=== PATIENT | female | born 1950 | race Caucasian/White ===

== ENCOUNTER 2019-09-07 00:52 | Inpatient (IN) | payer OTHER ==
[~2019-09-07] VITALS: Ht 162.6 cm; Wt 56.2 kg
[2019-09-07] VITALS (7 sets, daily range): BP systolic 108–172; BP diastolic 64–68; Ht 162.6 cm; Wt 56.2 kg
[2019-09-07 01:44] LABS: BASOPHILS 0.5 % (0-2); EOSINOPHILS 1.3 % (0-7); HEMATOCRIT 33.7 % (36.0-48.0); HEMOGLOBIN 11.3 g/dL (12-16); IMMATURE GRANULOCYTES 0.2 % (0-5); LYMPHOCYTES 14.2 % (15-50); MCH 31.1 pg (26.0-34.0); MCHC 33.5 g/dL (31.0-37.0); MCV 92.8 fL (80.0-100.0); MEAN PLATELET VOLUME 9.5 fL (7.4-10.4); MONOCYTES 8.8 % (2-11); PLATELET COUNT 220 10x3/uL (130-400); RBC 3.63 10x6/uL (4.00-5.40); RDW 13.3 % (11.5-14.5); WBC 8.5 10x3/uL (4.8-10.8)
[2019-09-07 01:53] LABS: CALC OSMOLALITY 283 mosm/kg (275-300); CARBON DIOXIDE 30.1 mmol/L (21.0-32.0); CHLORIDE - SERUM 106 mmol/L (98-107); CREATININE - SERUM 0.8 mg/dL (0.6-1.3); GLUCOSE 108 mg/dL (74-106); POTASSIUM - SERUM 3.8 mmol/L (3.5-5.1); SODIUM 141 mmol/L (136-145); UREA NITROGEN 17 mg/dL (7-18); eGFR NON AFRICAN AMERICAN 75 mL/min (90-120)
[2019-09-07 02:08] LABS: ALBUMIN 3.4 g/dL (3.4-5.0); ALKALINE PHOSPHATASE 86 U/L (30-120); ALT (SGPT) 24 U/L (10-68); C-REACTIVE PROTEIN 0.6 mg/dL (0.0-0.9); CREATINE KINASE 80 UL (21-215); LIPASE 132 U/L (73-393); MAGNESIUM - SERUM 1.9 mg/dL (1.8-2.4); PRO BNP 282 pg/mL (0-125); PROTEIN - SERUM 6.2 g/dL (6.4-8.2); THYROID STIMULATING HORMONE 3.29 uIU/mL (0.36-3.74)
[2019-09-07 02:09] LABS: TROPONIN-I < 0.017 ng/mL (0.000-0.060)
[2019-09-07] MEDS ORDERED: CARAFATE1 G PO (06:36)
[2019-09-07] MEDS ORDERED: METHOTREXATE2.5 MG PO (06:39)
[2019-09-07] MEDS ORDERED: PREDNISONE5 MG PO (06:42)
[2019-09-07] MEDS ORDERED: GABAPENTIN300 MG PO (06:43)
[2019-09-07] MEDS ORDERED: CYTOTEC200 MCG PO (06:44)
[2019-09-07] MEDS ORDERED: ARTHROTEC EC 71 EACH PO (06:45)
[2019-09-07] MEDS ORDERED: HYDROXYCHLOROQ200 MG PO (06:46)
[2019-09-07] MEDS ORDERED: PEPCID AC20 MG PO (06:47)
[2019-09-07] MEDS ORDERED: VOLTAREN75 MG PO (06:52)
[2019-09-07] MEDS ORDERED: MULTI-DAY VITAM1 TAB PO (06:53)
[2019-09-07] MEDS ORDERED: CITRACAL + D E1 EACH PO (06:54)
--- NOTE | 2019-09-07 12:01 | NUR ---
ASSESSMENT PER FLOW SHEET. PATIENT IS WITHOUT DISTRESS. DENIES NEEDS.CALL LIGHT IN REACH. NASIR MAT ON PER RADHA
[2019-09-08 04:00] VITALS: BP 124/49
[2019-09-08 06:17] LABS: BASOPHILS 1.2 % (0-2); EOSINOPHILS 3.3 % (0-7); HEMATOCRIT 35.1 % (36.0-48.0); HEMOGLOBIN 11.6 g/dL (12-16); IMMATURE GRANULOCYTES 0.2 % (0-5); LYMPHOCYTES 41.7 % (15-50); MCH 30.9 pg (26.0-34.0); MCV 93.6 fL (80.0-100.0); MEAN PLATELET VOLUME 9.4 fL (7.4-10.4); MONOCYTES 13.3 % (2-11); NEUTROPHILS 40.3 % (40-80); PLATELET COUNT 242 10x3/uL (130-400); RBC 3.75 10x6/uL (4.00-5.40); RDW 13.6 % (11.5-14.5)
[2019-09-08 06:25] LABS: WBC 4.3 10x3/uL (4.8-10.8)
[2019-09-08 06:33] LABS: ALBUMIN 3.2 g/dL (3.4-5.0); ALKALINE PHOSPHATASE 68 U/L (30-120); ALT (SGPT) 22 U/L (10-68); BILIRUBIN - TOTAL 0.56 mg/dL (0.2-1.3); CALC OSMOLALITY 278 mosm/kg (275-300); CALCIUM 8.9 mg/dL (8.5-10.1); CARBON DIOXIDE 31.1 mmol/L (21.0-32.0); CHLORIDE - SERUM 104 mmol/L (98-107); CREATININE - SERUM 0.7 mg/dL (0.6-1.3); GLUCOSE 79 mg/dL (74-106); POTASSIUM - SERUM 3.8 mmol/L (3.5-5.1); PROTEIN - SERUM 6.4 g/dL (6.4-8.2); SODIUM 139 mmol/L (136-145); UREA NITROGEN 17 mg/dL (7-18); eGFR NON AFRICAN AMERICAN 87 mL/min (90-120)
--- NOTE | 2019-09-08 07:10 | NUR ---
RECEIVED REPORT, ASSUMED CARE, A&O X3, BREATHING EVEN UNLABORED, IV TO LAC SL, DENIES NEEDS, CALL LIGHT IN REACH, LUNGS CTA, NO EDEMA NOTED, COMPLAINED OF SOME STIFFNESS
--- NOTE | 2019-09-08 07:30 | NUR ---
HELPED PT TO BATHROOM WHILE USING WALKER, MINIMUM ASSIST, HELPED BACK TO BED
--- NOTE | 2019-09-08 16:37 | NUR ---
I have reviewed this patient and I concur with the Shift Assessment completed by the Licensed Practical Nurse today this shift.
[2019-09-08 17:43] VITALS: BP 184/77
[2019-09-08 20:00] VITALS: BP 115/53
[2019-09-09 04:00] VITALS: BP 124/56
[2019-09-09 06:01] LABS: BASOPHILS 0.6 % (0-2); EOSINOPHILS 3.6 % (0-7); HEMATOCRIT 33.4 % (36.0-48.0); HEMOGLOBIN 10.8 g/dL (12-16); IMMATURE GRANULOCYTES 0.2 % (0-5); LYMPHOCYTES 39.7 % (15-50); MCH 30.2 pg (26.0-34.0); MCHC 32.3 g/dL (31.0-37.0); MCV 93.3 fL (80.0-100.0); MEAN PLATELET VOLUME 9.4 fL (7.4-10.4); MONOCYTES 11.5 % (2-11); NEUTROPHILS 44.4 % (40-80); PLATELET COUNT 233 10x3/uL (130-400); RBC 3.58 10x6/uL (4.00-5.40); RDW 13.4 % (11.5-14.5); WBC 5.1 10x3/uL (4.8-10.8)
[2019-09-09 06:36] LABS: ALKALINE PHOSPHATASE 62 U/L (30-120); ALT (SGPT) 19 U/L (10-68); BILIRUBIN - TOTAL 0.31 mg/dL (0.2-1.3); CALC OSMOLALITY 281 mosm/kg (275-300); CALCIUM 8.7 mg/dL (8.5-10.1); CARBON DIOXIDE 29.5 mmol/L (21.0-32.0); CHLORIDE - SERUM 107 mmol/L (98-107); CREATININE - SERUM 0.7 mg/dL (0.6-1.3); GLUCOSE 82 mg/dL (74-106); PROTEIN - SERUM 6.1 g/dL (6.4-8.2); SODIUM 142 mmol/L (136-145); UREA NITROGEN 13 mg/dL (7-18); eGFR NON AFRICAN AMERICAN 87 mL/min (90-120)
--- NOTE | 2019-09-09 07:10 | NUR ---
RECEIVED REPORT, ASSUMED CARE, BREATHING EVEN UNLABORED, BED LOWEST POSITION, CALL LIGHT IN REACH, LUNGS CTA, NO EDEMA NOTED, DENIES NEEDS, IV TO LAC PATENT
[2019-09-09 08:00] VITALS: BP 121/76
[2019-09-09] MEDS ORDERED: NORCO-7.5 PO ×2 (10:37→10:38)
--- NOTE | 2019-09-09 13:13 | NUR ---
DC INSTRUCTIONS GIVEN, QUESTIONS ANSWERED, IV REMOVED TIP INTACT, DC WITH BELINGINGS IN WC.
--- NOTE | 2019-09-09 16:08 | MORECARE ---
CASE MANAGEMENT DISCHARGE SUMMARY PATIENT: MARILYN GARDNER UNIT: [id number] ADM DATE: 09/07/19 AGE: 69 : 48 SEX: F ROOM/BED: D.2228 AUTHOR: KEAGAN BARGER PHYSICIAN: REFERRING PHYSICIAN: CALLIE BADILLO MD DATE OF SERVICE: 09/09/19 Discharge Plan Patient Name: MARILYN GARDNER Facility: [facility]:[place] : 1950 Planned Disposition: Home Anticipated Discharge Date: Discharge Date: 09/09/2019 Expected LOS: Initial Reviewer: [id number] Initial Review Date: 09/07/2019 Generated: 09/09/19 5:07 pm DCPIA - Discharge Planning Initial Assessment Updated by CHUCKIE: Yun Guthrie on 09/09/19 4:06 pm * Is the patient Alert and Oriented? Yes * How many steps to enter\exit or inside your home? * PCP FABY * Pharmacy [facility] * Preadmission Environment Home Alone * ADLs Independent * Equipment Walker * List name and contact numbers for known caregivers / representatives who currently or will assist patient after discharge: PATeJrson ASHLEY - [phone] [facility] - [phone] * Verbal permission to speak to the caregivers and representatives has been obtained from the patient. Yes * Community resources currently utilized None * Additional services required to return to the preadmission environment? No * Can the patient safely return to the preadmission environment? Yes * Has this patient been hospitalized within the prior 30 days at any hospital? No Coverage Notice Reviewer: [id number] Kristen Guthrie Notice Issued Date-Time: 09/09/2019 10:50 Notice Type: Patient Choice Letter Notice Delivered To: Patient Relationship to Patient: Seat Trimmer Name: Delivery Method: HAND - Hand Delivered Phyllis Days: Prior Verbal Notification: Recipient Understood Notice: Yes Recipient Signature: Yes Med Rec Note Co-signed by Attending: Coverage Notice Comment: declined HHS Patient Name: MARILYN GARDNER Page [phone] at 1608 All edits/amendments must be made on the electronic document DICTATION DATE: 09/09/19 1608 RECORDS AND INFORMATION MANAGER: HOLLIS 09/09/19 1608 RPT#: [id number] DC DATE:09/09/19 STATUS: DIS IN [facility] [address] [place] [address] END OF REPORT
--- NOTE | 2019-09-09 16:15 | MORECARE ---
CASE MANAGEMENT DISCHARGE SUMMARY PATIENT: MARILYN GARDNER UNIT: [id number] ADM DATE: 09/07/19 AGE: 69 : 48 SEX: F ROOM/BED: D.2228 AUTHOR: DENITA,DOC PHYSICIAN: REFERRING PHYSICIAN: CALLIE BADILLO MD DATE OF SERVICE: 09/09/19 Discharge Plan Patient Name: MARILYN GARDNER Facility: [facility]:[place] : 1950 Planned Disposition: Home Anticipated Discharge Date: Discharge Date: 09/09/2019 Expected LOS: Initial Reviewer: [email or web address] Initial Review Date: 09/07/2019 Generated: 09/09/19 5:14 pm Comments DCP- Discharge Planning Updated by [email or web address]: Yun Guthrie on 09/09/19 3:[address] Patient Name: MARILYN GARDNER Admission Status: ER Accout number: [id number] Admission Date: 09-07-2019 : 1950 Admission Diagnosis: Attending: OFE BADILLO Current LOS: 2 Anticipated DC Date: Planned Disposition: Home Primary Insurance: [employer] Discharge Planning Comments: CM met with patient to complete initial dc planning assessment. CM educated patient on the CM role and verbal consent given by patient to complete assessment. Patient lives at home alone. Patient is independent. Patient is a high risk for falls with her current condition. Patient states that she is going to family and friends to stay with her until she can recover from her surgery. At discharge patient plans to return home and feels this is a safe discharge. CM discussed availability of home health, rehab services, and medical equipment. Patient refused HHS and declination was signed. CM did give brochures on HH agencies locally if she should change her mind. Patient will have family to transport home. Patient denied known discharge needs at this time. CM will continue to follow and will assist as needed with dc plans/needs. Cryolite Recovery Operator: Yun Guthrie DCPIA - Discharge Planning Initial Assessment Updated by [email or web address]: Yun Guthrie on 09/09/19 4:06 pm * Is the patient Alert and Oriented? Yes * How many steps to enter\exit or inside your home? * PCP FABY * Pharmacy [facility] * Preadmission Environment Home Alone * ADLs Independent * Equipment Walker * List name and contact numbers for known caregivers / representatives who currently or will assist patient after discharge: PAT ASHLEY - [phone] KEO CONDON - [phone] * Verbal permission to speak to the caregivers and representatives has been obtained from the patient. Yes * Community resources currently utilized None * Additional services required to return to the preadmission environment? No * Can the patient safely return to the preadmission environment? Yes * Has this patient been hospitalized within the prior 30 days at any hospital? No Coverage Notice Reviewer: [id number] Kristen Guthrie Notice Issued Date-Time: 09/09/2019 10:50 Notice Type: Patient Choice Letter Notice Delivered To: Patient Relationship to Patient: Admission Nurse Name: Delivery Method: HAND - Hand Delivered Phyllis Days: Prior Verbal Notification: Recipient Understood Notice: Yes Recipient Signature: Yes Med Rec Note Co-signed by Attending: Coverage Notice Comment: declined HHS Last DP export: 09/09/19 3:08 p Patient Name: MARILYN GARDNER Page [phone] at 1615 All edits/amendments must be made on the electronic document DICTATION DATE: 09/09/191613 CLOTH WORKER: HOLLIS 09/09/19 161 RPT#: [id number] DC DATE:09/09/19 STATUS: DIS IN [facility] [address] [place] [address] END OF REPORT
--- NOTE | 2019-09-10 17:27 | MORECARE ---
CASE MANAGEMENT DISCHARGE SUMMARY PATIENT: MARILYN GARDNER UNIT: [id number] ADM DATE: 09/07/19 AGE: 69 : 48 SEX: F ROOM/BED: D.2228 AUTHOR: DENITA,DOC PHYSICIAN: REFERRING PHYSICIAN: CALLIE BADILLO MD DATE OF SERVICE: 09/10/19 Discharge Plan Patient Name: MARILYN GARDNER Facility: [facility]:[place] : 1950 Planned Disposition: Home Anticipated Discharge Date: Discharge Date: 09/09/2019 Expected LOS: Initial Reviewer: [id number] Initial Review Date: 09/07/2019 Generated: 09/10/19 6:26 pm Comments DCP- Discharge Planning Updated by [email or web address]: Yun Guthrie on 09/09/19 3:[address] Patient Name: MARILYN GARDNER Admission Status: ER Accout number: [id number] Admission Date: 09-07-2019 : 1950 Admission Diagnosis: Attending: OFE BADILLO Current LOS: 2 Anticipated DC Date: Planned Disposition: Home Primary Insurance: [employer] Discharge Planning Comments: CM met with patient to complete initial dc planning assessment. CM educated patient on the CM role and verbal consent given by patient to complete assessment. Patient lives at home alone. Patient is independent. Patient is a high risk for falls with her current condition. Patient states that she is going to family and friends to stay with her until she can recover from her surgery. At discharge patient plans to return home and feels this is a safe discharge. CM discussed availability of home health, rehab services, and medical equipment. Patient refused HHS and declination was signed. CM did give brochures on HH agencies locally if she should change her mind. Patient will have family to transport home. Patient denied known discharge needs at this time. CM will continue to follow and will assist as needed with dc plans/needs. Social Sciences Instructor: Yun Guthrie DCPIA - Discharge Planning Initial Assessment Updated by [email or web address]: Yun Guthrie on 09/09/19 4:06 pm * Is the patient Alert and Oriented? Yes * How many steps to enter\exit or inside your home? * PCP FABY * Pharmacy [facility] * Preadmission Environment Home Alone * ADLs Independent * Equipment Walker * List name and contact numbers for known caregivers / representatives who currently or will assist patient after discharge: PAT ASHLEY - [phone] KEO CONDON - [phone] * Verbal permission to speak to the caregivers and representatives has been obtained from the patient. Yes * Community resources currently utilized None * Additional services required to return to the preadmission environment? No * Can the patient safely return to the preadmission environment? Yes * Has this patient been hospitalized within the prior 30 days at any hospital? No Coverage Notice Reviewer: [id number] Kristen Guthrie Notice Issued Date-Time: 09/09/2019 10:50 Notice Type: Patient Choice Letter Notice Delivered To: Patient Relationship to Patient: Parking Worker Name: Delivery Method: HAND - Hand Delivered Phyllis Days: Prior Verbal Notification: Recipient Understood Notice: Yes Recipient Signature: Yes Med Rec Note Co-signed by Attending: Coverage Notice Comment: declined HHS Last DP export: 09/09/19 3:14 p Patient Name: MARILYN GARDNER Page [phone] at 1727 All edits/amendments must be made on the electronic document DICTATION DATE: 09/10/191725 RAG GRADER: HOLLIS 09/10/191725 RPT#: [id number] DC DATE:09/09/19 STATUS: DIS IN [facility] [address] [place] [address] END OF REPORT
== END 2019-09-09 13:14 | disposition home or self-care (01) | DRG 552 ==
LOC: D.ER 00:52 → D.MS 04:43 → OBSVTIME 04:43 → D.MS 04:43
PROVIDERS: Family Medicine; ADMIT Emergency Medicine; ATTEND Emergency Medicine
DX: M47.12 Other spondylosis with myelopathy, cervical region (principal); G72.81 Critical illness myopathy; G95.89 Other specified diseases of spinal cord; G95.20 Unspecified cord compression; M84.48XA Pathological fracture, other site, initial encounter for fracture; K57.90 Diverticulosis of intestine, part unspecified, without perforation or abscess without bleeding; G62.9 Polyneuropathy, unspecified; M06.9 Rheumatoid arthritis, unspecified; R26.9 Unspecified abnormalities of gait and mobility

== ENCOUNTER 2019-11-09 15:51 | Inpatient (IN) | payer OTHER ==
[~2019-11-09] VITALS: Ht 162.6 cm; Wt 57.5 kg
[~2019-11-09 15:51] MED LIST: ARTHROTEC EC 71 EACH PO; CARAFATE1 G PO; CITRACAL + D E1 EACH PO; CYTOTEC200 MCG PO; GABAPENTIN300 MG PO; HYDROXYCHLOROQ200 MG PO; METHOTREXATE2.5 MG PO; MULTI-DAY VITAM1 TAB PO; NORCO-7.5 PO; PEPCID AC20 MG PO; PREDNISONE5 MG PO; VOLTAREN75 MG PO
[2019-11-13] MEDS ORDERED: VITAMIN D2000 UNI1 PO ×2 (11:40→11:41)
[2019-11-13] MEDS ORDERED: FOLIC ACID1 MG PO (11:41)
[2019-11-13] MEDS ORDERED: [UNRECOGNIZED DRUG - OTHER] (11:42)
[2019-11-13 12:45] LABS: HEMATOCRIT 36.9 % (36.0-48.0); HEMOGLOBIN 12.3 g/dL (12-16); MCH 30.8 pg (26.0-34.0); MCHC 33.3 g/dL (31.0-37.0); MCV 92.5 fL (80.0-100.0); MEAN PLATELET VOLUME 9.5 fL (7.4-10.4); RBC 3.99 10x6/uL (4.00-5.40); RDW 14.1 % (11.5-14.5); WBC 6.6 10x3/uL (4.8-10.8)
[2019-11-15 20:00] VITALS: BP 142/60
--- NOTE | 2019-11-15 20:00 | NUR ---
PT BROUGHT TO FLOOR VIA WHEELCHAIR. AMBULATED WITH WALKER TO BED. FRIEND AT BEDSIDE. CONSENTS FOR LUMBAR LAMINECTOMY SIGNED AT THIS TIME. PT REQUESTING NORCO TONIGHT AT BEDTIME. CALLED DR HUNTLEY AND RECIEVED ORDER, SEE CHEKO. JUDAH CASSIDY APN CAME TO BEDSIDE TO SEE PT. SCDS PLACED ON PT BILAT AND EDUCATED ON USE. PROVIDED INCENTIVE SPIROMETER AND EDUCATED ON USE. PT DEMONSTRATED APPROPRIATE USE. ATTEMPTS X2 TO GET IV ACCESS UNSUCCESSFUL, WILL HAVE SECOND NURSE COME ATTEMPT.
--- NOTE | 2019-11-15 22:00 | NUR ---
HIBICLENS BATH DONE AT THIS TIME. ATTEMPTS X3 TO GET IV UNSUCCESSFUL. PT STATES SURGERY HAD TO PUT IN HER LAST IV. REQUESTED TO WAIT AND TRY AGAIN IN AM. STATES PAIN 8/10 IN BACK. GAVE NORCO ORDERED. DENIES OTHER NEEDS, CL IN REACH, WILL CTM
[2019-11-16 01:23] VITALS: BMI 20.8
[2019-11-16 04:00] VITALS: BP 135/63
[2019-11-16 06:41] LABS: BASOPHILS 0.9 % (0-2); EOSINOPHILS 2.3 % (0-7); HEMATOCRIT 32.8 % (36.0-48.0); HEMOGLOBIN 10.8 g/dL (12-16); IMMATURE GRANULOCYTES 0.2 % (0-5); LYMPHOCYTES 28.9 % (15-50); MCH 30.2 pg (26.0-34.0); MCHC 32.9 g/dL (31.0-37.0); MCV 91.6 fL (80.0-100.0); MEAN PLATELET VOLUME 9.4 fL (7.4-10.4); MONOCYTES 14.2 % (2-11); NEUTROPHILS 53.5 % (40-80); PLATELET COUNT 248 10x3/uL (130-400); RBC 3.58 10x6/uL (4.00-5.40); RDW 13.7 % (11.5-14.5); WBC 4.4 10x3/uL (4.8-10.8)
[2019-11-16 07:04] LABS: ANION GAP 10.8 mmol/L (8-16); CALCIUM 8.9 mg/dL (8.5-10.1); CARBON DIOXIDE 27.1 mmol/L (21.0-32.0); CREATININE - SERUM 0.9 mg/dL (0.6-1.3); MAGNESIUM - SERUM 2.1 mg/dL (1.8-2.4); PHOSPHOROUS 4.3 mg/dL (2.5-4.9); POTASSIUM - SERUM 3.9 mmol/L (3.5-5.1)
[2019-11-16 07:15] LABS: APTT 28.1 SECONDS (22.8-39.4); INR 0.98 (0.85-1.17); PROTIME 12.9 SECONDS (11.6-15.0)
--- NOTE | 2019-11-16 09:51 | NUR ---
Rehab Note- Acute Inpatient Rehab prescreen order received. The patient is a new admit, had a laminectomy this Am. She has a pending PT Eval and spoke with ARTURO Sanchez to order an OT Eval for PreAuth process. Will follow at this time. Thank you for this referal! Maye Balderrama RN Cinical Liaison, [facility] Rehab
[2019-11-16 10:34] VITALS: BP 138/57
[2019-11-16 13:29] VITALS: Ht 162.6 cm; Wt 57.5 kg
[2019-11-16 14:18] VITALS: BP 140/59
[2019-11-16 16:49] VITALS: BP 144/64
--- NOTE | 2019-11-16 17:38 | NUR ---
PATIENT IN BED, DENIES NEEDS AT THIS TIME. FREE FROM SIGNS OF DISTRESS. WILL CONTINUE TO MONITOR.
--- NOTE | 2019-11-16 18:41 | NUR ---
SITTING UP IN BED EATING SUPPER. NO C/O PAIN. NO S/S OF ACUTE DISTRESS NOTED. CALL LIGHT IN REACH. DENIES ANY NEEDS AT THIS TIME. WILL CONTINUE TO MONITOR.
[2019-11-16 20:00] VITALS: BP 109/49
[2019-11-17] VITALS: BP 123/66
[2019-11-17 04:00] VITALS: BP 127/54
[2019-11-17 06:53] LABS: BASOPHILS 0.2 % (0-2); EOSINOPHILS 0.1 % (0-7); HEMATOCRIT 32.5 % (36.0-48.0); HEMOGLOBIN 10.6 g/dL (12-16); IMMATURE GRANULOCYTES 0.1 % (0-5); LYMPHOCYTES 11.9 % (15-50); MCHC 32.6 g/dL (31.0-37.0); MCV 92.1 fL (80.0-100.0); MEAN PLATELET VOLUME 9.6 fL (7.4-10.4); MONOCYTES 15.8 % (2-11); NEUTROPHILS 71.9 % (40-80); PLATELET COUNT 248 10x3/uL (130-400); RBC 3.53 10x6/uL (4.00-5.40)
[2019-11-17 07:22] LABS: WBC 9.6 10x3/uL (4.8-10.8)
[2019-11-17 07:26] LABS: CALC OSMOLALITY 281 mosm/kg (275-300); CALCIUM 8.8 mg/dL (8.5-10.1); CARBON DIOXIDE 25.9 mmol/L (21.0-32.0); CHLORIDE - SERUM 107 mmol/L (98-107); CREATININE - SERUM 0.8 mg/dL (0.6-1.3); GLUCOSE 101 mg/dL (74-106); PHOSPHOROUS 3.8 mg/dL (2.5-4.9); POTASSIUM - SERUM 4.1 mmol/L (3.5-5.1); SODIUM 141 mmol/L (136-145); eGFR NON AFRICAN AMERICAN 75 mL/min (90-120)
[2019-11-17 07:27] LABS: UREA NITROGEN 16 mg/dL (7-18)
--- NOTE | 2019-11-17 08:25 | NUR ---
0700 ASSISTED ON BEDPAN VOIDS WITHOUT DIFFICULTY
[2019-11-17 09:15] VITALS: BP 114/48
[2019-11-17 12:23] VITALS: BP 146/58
--- NOTE | 2019-11-17 14:49 | NUR ---
Rehab Note- Acute Inpatient Rehab prescreen order received. The patient has [employer] insurance and will require a PreAuth prior to an inpatient acute rehab stay. She has a pending OT Eval at this time, will need for PreAuth process. Will follow at this time and begin PreAuth process. Thank you for this referral! CATHIE Goff, [facility] Rehab
[2019-11-17 16:00] VITALS: BP 153/53
--- NOTE | 2019-11-17 17:59 | NUR ---
6310 SPOKE WITH SALMA PURCELL
--- NOTE | 2019-11-17 19:44 | NUR ---
PATIENT RESTING IN BED WITH NO S/S OF DISTRESS. PATIENT DENIES NEEDS AT THIS TIME. BED IN LOWEST POSITION AND CALL LIGHT WITHIN REACH. ENCOURAGED THE PATIENT TO CALL IF SHE HAS NEEDS.
[2019-11-17 21:35] VITALS: BP 110/46
--- NOTE | 2019-11-17 21:44 | NUR ---
ADMINISTERED MEDS PER ORDERS. PATIENT DENIES OTHER NEEDS. WILL CONTINUE TO MONITOR.
[2019-11-18] VITALS: BP 114/60
[2019-11-18 04:00] VITALS: BP 112/56
[2019-11-18 06:00] LABS: BASOPHILS 0.2 % (0-2); EOSINOPHILS 0.4 % (0-7); HEMATOCRIT 31.3 % (36.0-48.0); HEMOGLOBIN 10.4 g/dL (12-16); IMMATURE GRANULOCYTES 0.4 % (0-5); MCH 30.6 pg (26.0-34.0); MCHC 33.2 g/dL (31.0-37.0); MCV 92.1 fL (80.0-100.0); MEAN PLATELET VOLUME 9.2 fL (7.4-10.4); MONOCYTES 17.9 % (2-11); NEUTROPHILS 56.1 % (40-80); PLATELET COUNT 209 10x3/uL (130-400); RDW 14.2 % (11.5-14.5)
[2019-11-18 06:05] LABS: WBC 5.6 10x3/uL (4.8-10.8)
[2019-11-18 06:32] LABS: ANION GAP 11.2 mmol/L (8-16); CALCIUM 8.5 mg/dL (8.5-10.1); CARBON DIOXIDE 26.5 mmol/L (21.0-32.0); CREATININE - SERUM 0.9 mg/dL (0.6-1.3); MAGNESIUM - SERUM 1.9 mg/dL (1.8-2.4); PHOSPHOROUS 3.5 mg/dL (2.5-4.9); POTASSIUM - SERUM 3.7 mmol/L (3.5-5.1)
[2019-11-18 08:00] VITALS: BP 159/73
[2019-11-18 11:51] VITALS: BP 127/61
[2019-11-18 16:22] VITALS: BP 145/56
--- NOTE | 2019-11-18 18:50 | NUR ---
077 ASSESSMENT COMPLETE COOPERATIVE PT PUREWICK IN PLACE
--- NOTE | 2019-11-18 18:52 | NUR ---
1030 LARGE SOFT BM NOTED
--- NOTE | 2019-11-18 19:00 | NUR ---
RECEIVED REPORT, ASSUMED CARE, BRETAHING EVEN UNLABORED, CALL LIGHT IN REACH, BED LOWEST POSITION, DENIES NEEDS, PUREWICK IN PLACE, NO S/S OF DISTRESS NOTED
[2019-11-18 20:00] VITALS: BP 112/54
[2019-11-19] VITALS: BP 122/57
--- NOTE | 2019-11-19 03:39 | NUR ---
I have reviewed this patient and I concur with the Shift Assessment completed by the Licensed Practical Nurse today this shift.
[2019-11-19 04:00] VITALS: BP 144/66
[2019-11-19 05:51] LABS: BASOPHILS 0.3 % (0-2); EOSINOPHILS 1.2 % (0-7); HEMATOCRIT 31.2 % (36.0-48.0); HEMOGLOBIN 10.3 g/dL (12-16); IMMATURE GRANULOCYTES 0.4 % (0-5); LYMPHOCYTES 23.7 % (15-50); MCH 30.1 pg (26.0-34.0); MCV 91.2 fL (80.0-100.0); MEAN PLATELET VOLUME 9.6 fL (7.4-10.4); MONOCYTES 12.9 % (2-11); NEUTROPHILS 61.5 % (40-80); PLATELET COUNT 228 10x3/uL (130-400); RBC 3.42 10x6/uL (4.00-5.40); RDW 13.9 % (11.5-14.5); WBC 6.7 10x3/uL (4.8-10.8)
[2019-11-19 06:10] LABS: ANION GAP 9.2 mmol/L (8-16); CALCIUM 8.5 mg/dL (8.5-10.1); CARBON DIOXIDE 25.8 mmol/L (21.0-32.0); MAGNESIUM - SERUM 1.8 mg/dL (1.8-2.4); PHOSPHOROUS 3.5 mg/dL (2.5-4.9)
--- NOTE | 2019-11-19 06:45 | NUR ---
A&O RESTING IN BED WITH EYES OPEN. NO C/O PAIN. NO S/S OF ACUTE DISTRESS NOTED. POD #3 LAMINECTOMY, DRESSING C/D/I. UP WITH PHYSICAL THERAPY. PUREWICK IN PLACE. IV TO LEFT AC, SL. SITE PATENT WITHOUT REDNESS OR SWELLING. DENIES ANY NEEDS AT THIS TIME. CALL LIGHT IN REACH. WILL CONTINUE TO MONITOR.
[2019-11-19 09:05] VITALS: BP 157/66
[2019-11-19 12:38] VITALS: BP 119/52
--- NOTE | 2019-11-19 14:22 | NUR ---
Nutrition Follow-up: Diet: Regular PO intake: 100% of breakfast and lunch meals today. She states that her appetite is good and she denies needs from dietary at this time. Last BM: 11/17/19. Wt: 126# (11/18/19) Meds noted: methotrexate, prednisone, vit D. Labs reviewed. Recommend continue current diet. RD following.
[2019-11-19 15:00] VITALS: BP 124/52
--- NOTE | 2019-11-19 16:07 | NUR ---
Rehab Note- Initiated and have faxed clinicals to Paulie/Luz [facility], pending ref#[id number]. Will await for determination at this time for possible inpatient acute rehab stay. Thank you for this referral! Maye Balderrama RN Clinical Liaison, [facility] Rehab
--- NOTE | 2019-11-19 19:35 | NUR ---
I have reviewed this patient and I concur with the Shift Assessment completed by the Licensed Practical Nurse today this shift.
[2019-11-19 20:00] VITALS: BP 137/56
--- NOTE | 2019-11-19 21:47 | NUR ---
DRSG LUMBAR SPINE CDI.CONTINUES TO C/O PAIN SHOOTING DOWN RIGHT LEG MINIMAL COMPLAINTS OF NUMBNESS RIGHT LEG AND FOOT PEDAL PULSE PRESENT WIGGLES TOES AND DORSIFLEXES WILL CONTINUE TO MONITOR FOR ANY CHGES IN NEUROVASCULAR STATUS AND FOLLOW CURRENT PLAN OF CARE.
[2019-11-20] VITALS: BP 132/62
[2019-11-20 04:00] VITALS: BP 137/67
[2019-11-20 06:44] LABS: BASOPHILS 0.4 % (0-2); EOSINOPHILS 2.3 % (0-7); HEMATOCRIT 30.9 % (36.0-48.0); HEMOGLOBIN 10.1 g/dL (12-16); IMMATURE GRANULOCYTES 0.2 % (0-5); LYMPHOCYTES 26.6 % (15-50); MCH 30.1 pg (26.0-34.0); MCHC 32.7 g/dL (31.0-37.0); MCV 92.2 fL (80.0-100.0); MEAN PLATELET VOLUME 9.7 fL (7.4-10.4); MONOCYTES 12.6 % (2-11); NEUTROPHILS 57.9 % (40-80); PLATELET COUNT 227 10x3/uL (130-400); RBC 3.35 10x6/uL (4.00-5.40); RDW 13.9 % (11.5-14.5); WBC 5.2 10x3/uL (4.8-10.8)
[2019-11-20 07:00] VITALS: BP 145/73
[2019-11-20 07:08] LABS: CALC OSMOLALITY 281 mosm/kg (275-300); CALCIUM 8.5 mg/dL (8.5-10.1); CARBON DIOXIDE 27.5 mmol/L (21.0-32.0); CHLORIDE - SERUM 108 mmol/L (98-107); CREATININE - SERUM 0.8 mg/dL (0.6-1.3); GLUCOSE 86 mg/dL (74-106); MAGNESIUM - SERUM 1.9 mg/dL (1.8-2.4); PHOSPHOROUS 3.7 mg/dL (2.5-4.9); POTASSIUM - SERUM 3.8 mmol/L (3.5-5.1); SODIUM 141 mmol/L (136-145); UREA NITROGEN 18 mg/dL (7-18); eGFR NON AFRICAN AMERICAN 75 mL/min (90-120)
--- NOTE | 2019-11-20 08:17 | NUR ---
PT REPORTS NO PAIN AT THIS TIME. REPOSITIONED AND PLACED PUREWICK BACK IN PLACE. BED IN LOWEST POSITION, LOCKED, SIDE RAILS UP X2. CALL LIGHT WITHIN REACH. NEEDS ANTICIPATED AND MET. WILL CONTINUE TO MONITOR
--- NOTE | 2019-11-20 10:12 | NUR ---
Rehab Note- Received VM from Sarah with [employer] with Auth approval, also received Fax with Auth approval with clinical updates due 11/27. Sarah's contact # is [phone], Auth #[id number]. Spoke with ARTURO Lee to anthony of auth approval. Can accept this patient to [facility] Acute INpatient Rehab when the physician is ready to discharge from the acute hospital. Thank you for this referral! Maye Balderrama RN Clinical Liaison, [facility] Rehab
[2019-11-20 11:00] VITALS: BP 123/66
--- NOTE | 2019-11-20 14:55 | MORECARE ---
CASE MANAGEMENT DISCHARGE SUMMARY PATIENT: MARILYN GARDNER UNIT: [id number] ADM DATE: 11/15/19 AGE: 69 : 48 SEX: F ROOM/BED: D.2234 AUTHOR: KEAGAN BARGER PHYSICIAN: REFERRING PHYSICIAN: THEODORA CALDWELL MD DATE OF SERVICE: 11/20/19 Discharge Plan Patient Name: MARILYN GARDNER Facility: [facility]:[place] : 1950 Planned Disposition: Anticipated Discharge Date: Discharge Date: Expected LOS: Initial Reviewer: [email or web address] Initial Review Date: 11/15/2019 Generated: 11/20/19 3:54 pm Comments DCP- Discharge Planning Updated by [email or web address]: Laura Sprague on 11/20/19 1:[address] Patient Name: MARILYN GARDNER Admission Status: Elective Accout number: [id number] Admission Date: 11-15-2019 : 1950 Admission Diagnosis:RADICULOPATHY, LUMBAR REGION Attending: THEODORA CALDWELL Current LOS: 5 Anticipated DC Date: Planned Disposition: Primary Insurance: [employer] Discharge Planning Comments: CM met with patient at bedside after explaining CM role and obtaining verbal consent. CM discussed availability / needs of home health, REHAB and medical equipment. PLANS FOR IPRH AT [facility] TODAY. IMM SIGNED AND COPY GIVEN. CM TO FOLLOW AND ASSIST NEEDED. Joint Cutter Machine: Laura Sprague Coverage Notice Reviewer: [id number] - Laura Sprague Notice Issued Date-Time: 11/20/2019 14:51 Notice Type: IM Discharge Notice Notice Delivered To: Patient Relationship to Patient: Sales Representative Metals Name: Delivery Method: - Phyllsi Days: Prior Verbal Notification: Recipient Understood Notice: Recipient Signature: Med Rec Note Co-signed by Attending: Coverage Notice Comment: Patient Name: MARILYN GARDNER Page [phone] at 1455 All edits/amendments must be made on the electronic document DICTATION DATE: 11/20/19 1454 OPTICAL MECHANIC: HOLLIS 11/20/19 145 RPT#: [id number] DC DATE: STATUS: ADM IN [place] [id number] [place] [address] END OF REPORT
--- NOTE | 2019-11-20 18:15 | NUR ---
DISCUSSED DISCHARGE INFO AND EDUCATION INFO WITH PATIENT. RECEIVED WELL. REMOVED IV. FULLY INTACT. TOLERATED WELL. NO ACUTE DISTRESS NOTED. TRANSFERRED TO REHAB VIA .
--- NOTE | 2019-11-21 09:17 | MORECARE ---
CASE MANAGEMENT DISCHARGE SUMMARY PATIENT: MARILYN GARDNER UNIT: [id number] ADM DATE: 11/15/19 AGE: 69 : 48 SEX: F ROOM/BED: D.2234 AUTHOR: KEAGAN BARGER PHYSICIAN: REFERRING PHYSICIAN: THEODORA CALDWELL MD DATE OF SERVICE: 11/21/19 Discharge Plan Patient Name: MARILYN GARDNER Facility: [facility]:[place] : 1950 Planned Disposition: Anticipated Discharge Date: Discharge Date: 11/20/2019 Expected LOS: Initial Reviewer: [email or web address] Initial Review Date: 11/15/2019 Generated: 11/21/19 10:16 am Comments DCP- Discharge Planning Updated by [email or web address]: Laura Sprague on 11/20/19 1:[address] Patient Name: MARILYN GARDNER Admission Status: Elective Accout number: [id number] Admission Date: 11-15-2019 : 1950 Admission Diagnosis:RADICULOPATHY, LUMBAR REGION Attending: THEODORA CALDWELL Current LOS: 5 Anticipated DC Date: Planned Disposition: Primary Insurance: [employer] Discharge Planning Comments: CM met with patient at bedside after explaining CM role and obtaining verbal consent. CM discussed availability / needs of home health, REHAB and medical equipment. PLANS FOR [facility]H AT [facility] TODAY. IMM SIGNED AND COPY GIVEN. CM TO FOLLOW AND ASSIST NEEDED. Server Support Technician: Laura Sprague Coverage Notice Reviewer: [id number] - Laura Sprague Notice Issued Date-Time: 11/20/2019 14:51 Notice Type: IM Discharge Notice Notice Delivered To: Patient Relationship to Patient: Head Field Hockey Coach Name: Delivery Method: - Phyllis Days: Prior Verbal Notification: Recipient Understood Notice: Recipient Signature: Med Rec Note Co-signed by Attending: Coverage Notice Comment: Last DP export: 11/20/19 1:55 p Patient Name: MARILYN GARDNER Page [phone] at 0917 All edits/amendments must be made on the electronic document DICTATION DATE: 11/21/19916 SALVAGE ENGINEER: HOLLIS 11/21/19916 RPT#: [id number] DC DATE:11/20/19 STATUS: DIS IN [facility] [address] [place] [address] END OF REPORT
--- NOTE | 2019-11-22 11:53 | OP ---
PATIENT NAME: MARILYN GARDNER MEDICAL RECORD: [id number] :[birth year] LOCATION:[id number] ADMISSION DATE:11/15/19 SURGEON: CALLIE MONTIEL MD DATE OF OPERATION: 11/16/2019 PREOPERATIVE DIAGNOSES: Lumbar spinal stenosis on the right at L3-L4 and L4-L5 with Lumbar spinal stenosis and lateral recess stenosis L3-4, L4-5. POSTOPERATIVE DIAGNOSIS: Lumbar spinal stenosis on the right at L3-L4 and L4-L5 with Lumbar spinal stenosis and lateral recess stenosis L3-4, L4-5. PROCEDURE: Lumbar laminectomy, medial facetectomy, and foraminotomy with METRx retractor at L3-4 and L4-L5 on the right. SURGEON: Callie Montiel MD DESCRIPTION AND TECHNIQUE: After induction of general endotracheal anesthesia, the patient was rolled prone on a Romie frame. Lumbar spine was prepped and draped in usual sterile fashion. After sterile prep and drape, a spinal needle was used to localize the L3-L4 interspace on the right side. This was confirmed with fluoroscopic x-ray. A stab incision was carried out with a #11 blade and series of dilators were used to advance the METRx retractor at the L3-L4 interspace on the right side. The level was confirmed with fluoroscopic x-ray. Next, a microscope and Midas Danny were used to perform a laminectomy, medial facetectomy, and foraminotomy at L3-L4 and L4-L5 on the right. Hypertrophied ligamentum flavum was removed with Cloward rongeurs. A lateral recess and central canal were decompressed well. The nerve roots at L3, L4, and L5 were decompressed well. Meticulous hemostasis was maintained throughout the wound. Wound was irrigated with copious amounts of Ancef irrigant solution and the retractors removed. The fascia was closed with 2-0 Vicryl suture, the subdermal layer was closed with 3-0 Vicryl suture. The skin was closed with miriam. A sterile dressing was applied to the wound. The patient was awakened in good condition, taken to recovery. All counts were reported as correct. Estimated blood loss was minimal. TRANSINT:[id number] Voice Confirmation ID: [id number] DOCUMENT ID: [id number] CALLIE MONTIEL MD at 1153 CC: [id number] DICTATION DATE: 11/18/19 1242 TOUR CONSULTANT: 11/19/19 0208 DIS IN 11/20/19 [facility] [address] [place] [id number]
== END 2019-11-20 18:34 | DRG 517 ==
LOC: D.OPS 11-15 09:00 → EDSTATUS 11-15 10:45 → D.OPS 11-15 10:45 → D.MS 11-15 18:33 → D.OPS 11-16 10:45 → D.CVICU 11-16 17:27 → D.MS 11-16 17:37
PROVIDERS: Anesthesiology; Neurological Surgery; ADMIT Family Medicine; ATTEND Family Medicine
PROC: 01NB0ZZ Release Lumbar Nerve, Open Approach (ICD-10-PCS; principal; 2019-11-16 07:30)
DX: M54.16 Radiculopathy, lumbar region (principal); M48.061 Spinal stenosis, lumbar region without neurogenic claudication; M06.9 Rheumatoid arthritis, unspecified; G62.9 Polyneuropathy, unspecified; G89.29 Other chronic pain; R26.89 Other abnormalities of gait and mobility